=== PATIENT | female | born 1960 | race Caucasian/White ===

== ENCOUNTER 2016-09-23 19:44 | Emergency (ER) | payer MEDICARE, MEDICAID ==
[~2016-09-23] VITALS: Ht 157.5 cm; Wt 56.8 kg
[~2016-09-23 19:44] MED LIST: ARIP2TAB10 PO; CYCL10TA9 PO; DEXT20TA8 PO; KETO10TA PO; LEVO25TA5 PO; LISI-567 PO; OXYC1TAB24 PO; OXYC20TA55 PO; PROM25SU46 RC; ZOLP5TAB6 PO
[2016-09-23 19:51] VITALS: BP 125/83; PULSE 92; RESP 16; O2SAT 97
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
--- NOTE | 2016-09-23 21:37 | DRSVH ---
PROCEDURE: X-RAY LEFT RIBS INCLUDEING PA CHEST, MINUMUM THREE VIEWS ([id number]) INDICATIONS: fall TECHNIQUE: 2 views of the left ribs were acquired, along with a single view chest. COMPARISON: [facility], CR, XR CHEST 2VW, 02/15/2015, 11:56. FINDINGS: Surgical changes and devices: None. Bones and chest wall: There are minimally displaced fractures of the right 7th and 8th ribs laterally . No suspicious bony lesions. Overlying soft tissues appear unremarkable. Lungs and pleura: No pleural effusions or pneumothorax. There is mild interstitial prominence redem onstrated in the lungs which appear chronic. Mediastinum: Mediastinal contours appear normal. Heart size is normal. IMPRESSION: 1. Minimally displaced fractures of the left 7th and 8th ribs. Dictated by: Diego Mckeon M.D. on 09/23/2016 at 21:34 Approved by: Diego Mckeon M.D. on 09/23/2016 at 21:36
[2016-09-23 21:53] VITALS: BP 150/97; PULSE 82; RESP 20; O2SAT 100
== END 2016-09-23 21:54 | disposition home or self-care (01) ==
LOC: SED 19:44
DX: S22.42XA Multiple fractures of ribs, left side, initial encounter for closed fracture (principal); S50.812A Abrasion of left forearm, initial encounter; V00.831A Fall from motorized mobility scooter, initial encounter; Y93.89 Activity, other specified; Y92.828 Other wilderness area as the place of occurrence of the external cause; Y99.8 Other external cause status; I10 Essential (primary) hypertension; F17.200 Nicotine dependence, unspecified, uncomplicated; Z88.2 Allergy status to sulfonamides; Z88.8 Allergy status to other drugs, medicaments and biological substances; Z91.040 Latex allergy status; Z91.041 Radiographic dye allergy status